=== PATIENT | male | born 1935 | race Asian ===

== ENCOUNTER 2022-09-04 07:38 | Inpatient (IN) | payer MEDICARE, OTHER ==
[~2022-09-04] VITALS: Ht 157.5 cm; Wt 64.5 kg
[2022-09-04 08:48] LABS: Basophils # (auto) 0 10 ^3/uL (0-0.2); Basophils % (auto) 0.3 % (0.0-2.0); Eosinophils # (auto) 0.9 10 ^3/uL (0-0.8); Eosinophils % (auto) 11.2 % (0.0-7.0); Hematocrit 39.4 % (41.0-53.0); Hemoglobin 13.1 g/dL (13.5-17.5); Lymphocytes # (auto) 1.3 10 ^3/uL (0.4-5.4); Lymphocytes % (auto) 15.6 % (10.0-50.0); Mean Corpuscular Hemoglobin 29.7 pg (28.0-32.0); Mean Corpuscular Hgb Conc. 33.3 g/dL (32.0-36.0); Mean Corpuscular Volume 89.1 fL (80.0-100.0); Monocytes # (auto) 0.7 10 ^3/uL (0-1.3); Monocytes % (auto) 7.9 % (0.0-12.0); Neutrophils # (auto) 5.5 10 ^3/uL (1.6-8.6); Red Blood Cells 4.42 10^6/uL (4.5-5.90); Red Cell Distribution Width 13.5 % (11.8-14.3); White Blood Cell 8.4 10^3/uL (4.4-10.8)
[2022-09-04] MEDS ORDERED: CLINDAMYCIN 300MG IV 50 ML IV ONE (09:00)
[2022-09-04] MEDS ORDERED: cefTRIAXone 1GM/50ML D5W 50 ML IV ONE (09:00)
[2022-09-04 09:39] LABS: Potassium 3.9 mmol/L (3.5-5.1)
[2022-09-04 09:46] LABS: Albumin 3.6 g/dL (3.4-5.0); BUN/Creatinine Ratio 9.6 (10.0-20.0); Bilirubin, Total 0.4 mg/dL (0.2-1.0); Total Protein 7.1 g/dL (6.4-8.2)
[2022-09-04] MEDS ORDERED: AMLO1TAB23 PO (13:10)
[2022-09-04] MEDS ORDERED: LOSA100T58 PO (13:10)
[2022-09-04] MEDS ORDERED: TAMS0.4C36 PO (13:10)
[2022-09-04] MEDS ORDERED: hydrALAZINE HCL 20 MG/ML VL IV PRN (13:15)
[2022-09-04] MEDS ORDERED: ACETAMINOPHEN 325 MG TAB PO PRN (13:15)
[2022-09-04] MEDS ORDERED: TRIAMCINOLONE ACET0.5% TOPICAL CRE 15GM TOP ONE (13:15)
[2022-09-04] MEDS ORDERED: CLINDAMYCIN 600MG IV 50 ML IV SCH (19:00)
[2022-09-05] VITALS (7 sets, daily range): BP systolic 123–154; BP diastolic 61–80
[2022-09-05] MEDS: SODIUM CHLORIDE 0.9% 1,000 ML IV SCH ×2 (00:50→05:55)
[2022-09-05] MEDS: CLINDAMYCIN 600MG IV 50 ML IV SCH ×3 (01:13→17:00)
[2022-09-05 06:23] LABS: Potassium 3.9 mmol/L (3.5-5.1)
[2022-09-05 06:31] LABS: Albumin 3.3 g/dL (3.4-5.0); BUN/Creatinine Ratio 16.7 (10.0-20.0); Bilirubin, Total 0.5 mg/dL (0.2-1.0); Calcium 8.3 mg/dL (8.5-10.1); Total Protein 6.7 g/dL (6.4-8.2)
[2022-09-05 06:35] LABS: Basophils # (auto) 0 10 ^3/uL (0-0.2); Basophils % (auto) 0.5 % (0.0-2.0); Eosinophils # (auto) 1.1 10 ^3/uL (0-0.8); Eosinophils % (auto) 13.2 % (0.0-7.0); Hematocrit 38.1 % (41.0-53.0); Hemoglobin 12.8 g/dL (13.5-17.5); Lymphocytes # (auto) 1.3 10 ^3/uL (0.4-5.4); Lymphocytes % (auto) 15.6 % (10.0-50.0); Mean Corpuscular Hemoglobin 29.7 pg (28.0-32.0); Mean Corpuscular Hgb Conc. 33.5 g/dL (32.0-36.0); Mean Corpuscular Volume 88.8 fL (80.0-100.0); Monocytes # (auto) 0.7 10 ^3/uL (0-1.3); Neutrophils % (auto) 61.7 % (37.0-80.0); Nucleated Red Blood Cells % 0.1 %; Red Blood Cells 4.29 10^6/uL (4.5-5.90); Red Cell Distribution Width 13.8 % (11.8-14.3); White Blood Cell 8.1 10^3/uL (4.4-10.8)
[2022-09-05] MEDS: cefTRIAXone 1GM/50ML D5W 50 ML IV SCH (08:36)
[2022-09-05] MEDS: amLODIPine BESYLATE 5 MG TAB PO SCH (11:15)
[2022-09-05] MEDS: TAMSULOSIN HYDROCHLORIDE 0.4 MG CAP PO SCH (11:16)
[2022-09-05] MEDS: ENOXAPARIN SOD 40 MG/0.4 ML SYRINGE SC SCH (12:57)
[2022-09-06] MEDS: CLINDAMYCIN 600MG IV 50 ML IV SCH ×3 (01:02→17:00)
[2022-09-06] MEDS: SODIUM CHLORIDE 0.9% 1,000 ML IV SCH ×2 (01:03→15:15)
[2022-09-06 05:00] VITALS: BP 130/66
[2022-09-06] MEDS: TAMSULOSIN HYDROCHLORIDE 0.4 MG CAP PO SCH (08:48)
[2022-09-06] MEDS: ENOXAPARIN SOD 40 MG/0.4 ML SYRINGE SC SCH (08:50)
[2022-09-06] MEDS: cefTRIAXone 1GM/50ML D5W 50 ML IV SCH (08:51)
[2022-09-06] MEDS: amLODIPine BESYLATE 5 MG TAB PO SCH (08:52)
[2022-09-06 09:00] VITALS: BP 121/67
[2022-09-06 13:00] VITALS: BP 113/58
[2022-09-06 13:13] LABS: Hepatitis C Antibody Negative (Negative)
[2022-09-06 16:51] VITALS: BP 113/52
[2022-09-06 22:00] VITALS: BP 118/68
[2022-09-07] MEDS: CLINDAMYCIN 600MG IV 50 ML IV SCH ×2 (00:28→09:00)
[2022-09-07] MEDS: SODIUM CHLORIDE 0.9% 1,000 ML IV SCH (01:37)
[2022-09-07 05:00] VITALS: BP 128/57
[2022-09-07 08:00] VITALS: BP 125/67
[2022-09-07] MEDS: cefTRIAXone 1GM/50ML D5W 50 ML IV SCH (09:06)
[2022-09-07] MEDS: TAMSULOSIN HYDROCHLORIDE 0.4 MG CAP PO SCH (09:51)
[2022-09-07] MEDS: ENOXAPARIN SOD 40 MG/0.4 ML SYRINGE SC SCH ×2 (09:51→09:55)
[2022-09-07] MEDS: amLODIPine BESYLATE 5 MG TAB PO SCH (09:52)
[2022-09-07 12:00] VITALS: BP 120/67
[2022-09-07] MEDS ORDERED: CLINDAMYCIN HCL 150 MG CAP PO SCH (12:51)
[2022-09-07] MEDS ORDERED: CLINDAMYCIN HCL 150 MG CAP PO ONE (13:00)
[2022-09-07 16:00] VITALS: BP 128/69
[2022-09-07] MEDS: CLINDAMYCIN HCL 150 MG CAP PO SCH ×2 (17:58→21:45)
[2022-09-07 21:30] VITALS: BP 123/65
[2022-09-08] MEDS: SODIUM CHLORIDE 0.9% 1,000 ML IV SCH ×2 (00:35→05:39)
[2022-09-08 05:00] VITALS: BP 152/65
[2022-09-08] MEDS: CLINDAMYCIN HCL 150 MG CAP PO SCH ×2 (05:37→11:50)
[2022-09-08 08:05] VITALS: BP 132/63
[2022-09-08 08:35] VITALS: BP 132/63
[2022-09-08] MEDS: cefTRIAXone 1GM/50ML D5W 50 ML IV SCH (08:56)
[2022-09-08] MEDS: ENOXAPARIN SOD 40 MG/0.4 ML SYRINGE SC SCH (10:00)
[2022-09-08] MEDS: amLODIPine BESYLATE 5 MG TAB PO SCH (10:09)
[2022-09-08] MEDS: TAMSULOSIN HYDROCHLORIDE 0.4 MG CAP PO SCH (10:09)
[2022-09-08 13:00] VITALS: BP 134/68
[2022-09-08] MEDS ORDERED: CLIN300C70 PO (14:50)
[2022-09-08 15:54] VITALS: BP 132/63
[2022-09-08] MEDS ORDERED: ACET-1079 PO (16:03)
[2022-09-08 17:00] VITALS: BP 115/61
== END 2022-09-08 17:25 | disposition home or self-care (01) | DRG 603 ==
LOC: ER 07:38 → OVERFLOW 13:09 → EAST 22:53
PROVIDERS: ADMIT Nurse Practitioner Family; ATTEND Internal Medicine
DX: L03.116 Cellulitis of left lower limb (principal); N17.9 Acute kidney failure, unspecified; I10 Essential (primary) hypertension; N40.0 Benign prostatic hyperplasia without lower urinary tract symptoms; Z79.899 Other long term (current) drug therapy
CPT/HCPCS: 36415; 80053; 83605; 83880; 85025; 86803; 87040; 87340; 93971; 96365; 96366; 96368; G0378; J0696; J3490

== ENCOUNTER 2022-10-01 17:41 | Inpatient (IN) | payer MEDICARE, OTHER ==
[~2022-10-01] VITALS: Ht 157.5 cm; Wt 65.4 kg
[~2022-10-01 17:41] MED LIST: ACET-1079 PO; AMLO1TAB23 PO; CLIN300C70 PO; LOSA100T58 PO; TAMS0.4C36 PO
[2022-10-01] MEDS ORDERED: CLINDAMYCIN 600MG IV 50 ML IV ONE (19:15)
[2022-10-01 19:40] LABS: Basophils # (auto) 0 10 ^3/uL (0-0.2); Basophils % (auto) 0.2 % (0.0-2.0); Eosinophils # (auto) 1.3 10 ^3/uL (0-0.8); Eosinophils % (auto) 14.2 % (0.0-7.0); Hematocrit 39.8 % (41.0-53.0); Hemoglobin 13.4 g/dL (13.5-17.5); Lymphocytes % (auto) 10.7 % (10.0-50.0); Mean Corpuscular Hemoglobin 29.8 pg (28.0-32.0); Mean Corpuscular Hgb Conc. 33.7 g/dL (32.0-36.0); Mean Corpuscular Volume 88.5 fL (80.0-100.0); Monocytes # (auto) 0.9 10 ^3/uL (0-1.3); Monocytes % (auto) 10.2 % (0.0-12.0); Neutrophils % (auto) 64.7 % (37.0-80.0); Red Cell Distribution Width 14.3 % (11.8-14.3); White Blood Cell 9.3 10^3/uL (4.4-10.8)
[2022-10-01 20:00] LABS: Albumin 3.8 g/dL (3.4-5.0); Calcium 8.4 mg/dL (8.5-10.1); Potassium 4.5 mmol/L (3.5-5.1)
[2022-10-01 20:04] LABS: BUN/Creatinine Ratio 14.4 (10.0-20.0); Bilirubin, Total 0.4 mg/dL (0.2-1.0); Total Protein 7.6 g/dL (6.4-8.2)
[2022-10-01] MEDS ORDERED: CLINDAMYCIN HCL 150 MG CAP PO ONE (22:15)
[2022-10-01] MEDS ORDERED: diphenhdrAMINE HCL 25 MG CAP PO PRN (22:15)
[2022-10-01] MEDS ORDERED: FAMOTIDINE (10MG/ML) 2ML VL IV ONE (22:15)
[2022-10-01] MEDS ORDERED: ONDANSETRON HCL 4 MG/2 ML VIAL IV PRN (22:15)
[2022-10-01] MEDS ORDERED: HYDROcodone-ACET 5/325MG TAB PO PRN (22:15)
[2022-10-01] MEDS ORDERED: hydrALAZINE HCL 20 MG/ML VL IV PRN (22:15)
[2022-10-01] MEDS ORDERED: cefTRIAXone 1GM/50ML D5W 50 ML IV ONE (22:15)
[2022-10-01] MEDS ORDERED: methylPREDNISolone SOD SUCC 125 MG/2 ML VL IV ONE (22:15)
[2022-10-01] MEDS ORDERED: SODIUM CHLORIDE 0.9% 1,000 ML IV ONE (22:15)
[2022-10-01] MEDS ORDERED: diphenhdrAMINE-ZINC ACETATE 1 APPLIC APPL TOP PRN (22:15)
[2022-10-01] MEDS ORDERED: ACETAMINOPHEN 325 MG TAB PO PRN (22:15)
[2022-10-02] MEDS: CLINDAMYCIN HCL 150 MG CAP PO SCH ×3 (06:36→21:35)
[2022-10-02 06:39] LABS: Basophils # (auto) 0 10 ^3/uL (0-0.2); Basophils % (auto) 0.2 % (0.0-2.0); Eosinophils # (auto) 1.2 10 ^3/uL (0-0.8); Eosinophils % (auto) 12.9 % (0.0-7.0); Hematocrit 40.5 % (41.0-53.0); Hemoglobin 13.7 g/dL (13.5-17.5); Lymphocytes # (auto) 0.8 10 ^3/uL (0.4-5.4); Mean Corpuscular Hemoglobin 29.9 pg (28.0-32.0); Mean Corpuscular Hgb Conc. 33.8 g/dL (32.0-36.0); Mean Corpuscular Volume 88.6 fL (80.0-100.0); Monocytes # (auto) 0.5 10 ^3/uL (0-1.3); Neutrophils # (auto) 6.9 10 ^3/uL (1.6-8.6); Neutrophils % (auto) 72.9 % (37.0-80.0); Red Blood Cells 4.57 10^6/uL (4.5-5.90); Red Cell Distribution Width 14.6 % (11.8-14.3); White Blood Cell 9.4 10^3/uL (4.4-10.8)
[2022-10-02 06:51] LABS: Calcium 8.6 mg/dL (8.5-10.1); Potassium 4.5 mmol/L (3.5-5.1)
[2022-10-02] MEDS: cefTRIAXone 1GM/50ML D5W 50 ML IV SCH (09:04)
[2022-10-02] MEDS: amLODIPine BESYLATE 5 MG TAB PO SCH (09:04)
[2022-10-02] MEDS ORDERED: FAMOTIDINE (10MG/ML) 2ML VL IV SCH (10:00)
[2022-10-02 16:30] VITALS: BP 137/85
[2022-10-02 20:00] VITALS: BP 122/78
[2022-10-02 22:00] VITALS: BP 122/78
[2022-10-03 05:00] VITALS: BP 146/89
[2022-10-03] MEDS: CLINDAMYCIN HCL 150 MG CAP PO SCH ×3 (05:26→21:58)
[2022-10-03 09:28] VITALS: BP 146/67
[2022-10-03] MEDS: cefTRIAXone 1GM/50ML D5W 50 ML IV SCH (09:45)
[2022-10-03] MEDS: amLODIPine BESYLATE 5 MG TAB PO SCH (09:45)
[2022-10-03 13:00] VITALS: BP 125/69
[2022-10-03 16:39] VITALS: BP 133/63
[2022-10-03 22:00] VITALS: BP 100/64
[2022-10-04 05:00] VITALS: BP 128/64
[2022-10-04] MEDS: CLINDAMYCIN HCL 150 MG CAP PO SCH ×3 (06:26→22:00)
[2022-10-04 08:00] VITALS: BP 136/76
[2022-10-04] MEDS: cefTRIAXone 1GM/50ML D5W 50 ML IV SCH (09:16)
[2022-10-04] MEDS: amLODIPine BESYLATE 5 MG TAB PO SCH (09:16)
[2022-10-04 12:00] VITALS: BP 134/76
[2022-10-04 16:00] VITALS: BP 141/76
[2022-10-04 22:00] VITALS: BP 115/61
[2022-10-05 05:00] VITALS: BP 134/76
[2022-10-05] MEDS: CLINDAMYCIN HCL 150 MG CAP PO SCH ×2 (06:22→13:34)
[2022-10-05 09:00] VITALS: BP 134/61
[2022-10-05] MEDS: cefTRIAXone 1GM/50ML D5W 50 ML IV SCH (09:35)
[2022-10-05] MEDS: amLODIPine BESYLATE 5 MG TAB PO SCH (09:35)
== END 2022-10-05 15:15 | DRG 603 ==
LOC: ER 17:43 → OVERFLOW 22:18 → WEST WING 10-02 15:01
PROVIDERS: ADMIT Nurse Practitioner; ATTEND Family Medicine
PROC: 05HC33Z Insertion of Infusion Device into Left Basilic Vein, Percutaneous Approach (ICD-10-PCS; principal; 2022-10-04)
PROC: B54NZZA Ultrasonography of Left Upper Extremity Veins, Guidance (ICD-10-PCS; 2022-10-04)
DX: L03.115 Cellulitis of right lower limb (principal); N17.9 Acute kidney failure, unspecified; L03.116 Cellulitis of left lower limb; N40.0 Benign prostatic hyperplasia without lower urinary tract symptoms; I10 Essential (primary) hypertension; Z20.822 Contact with and (suspected) exposure to COVID-19
CPT/HCPCS: 36415; 74176; 76775; 80048; 80053; 85025; 85652; 86141; 87040; 87426; 97163; G0378; J0696; J3490